=== PATIENT | male | born 1980 | race Caucasian/White ===

== ENCOUNTER 2016-06-13 21:00 | Emergency (ER) | payer SELFPAY ==
[2016-06-13] MEDS ORDERED: ONDANSETRON 4 MG TAB.RAPDIS PO ONE (21:31)
--- NOTE | 2016-06-13 21:32 | ER Document Report ---
ED Medical Screen (RME) - General Chief Complaint: Chest Congestion Stated Complaint: CHEST CONGESTION/COUGHING Time seen by provider: 21:30 Mode of Arrival: Ambulatory Information source: Patient Notes: 35-year-old male complaining of cough and congestion for several days. His hitting him hard he's had some fever and body aches. He did not get a flu shot this year. This pulse is 112, temperature 99.6, pulse ox 98%. His girlfriend has pneumonia. Physical Exam - Vital signs Vitals: Temp Pulse Resp BP Pulse Ox 99.6 F 112 H 18 125/75 98 06/13/16 21:21 06/13/16 21:21 06/13/16 21:21 06/13/16 21:21 06/13/16 21:21 Course - Vital Signs Vital signs: Temp Pulse Resp BP Pulse Ox 99.6 F 112 H 18 125/75 98 06/13/16 21:21 06/13/16 21:21 06/13/16 21:21 06/13/16 21:21 06/13/16 21:21
[2016-06-13] MEDS ORDERED: ACETAMINOPHEN 325 MG TABLET PO ONE (21:33)
[2016-06-14] MEDS ORDERED: AZITHROMYCIN 250 MG TABLET PO ONE (00:09)
[2016-06-14] MEDS ORDERED: DEXAMETHASONE SOD PHOS INJ 10 MG/1 ML VIAL IM ONE (00:12)
--- NOTE | 2016-06-14 00:12 | ER Document Report ---
ED General - General Chief Complaint: Flu Symptoms Stated Complaint: CHEST CONGESTION/COUGHING Mode of Arrival: Ambulatory Notes: Patient is a 35-year-old male presents with complaints of cough congestion and chills. He says his girlfriend had pneumonia. He feels that maybe he has also acquired pneumonia due to his exposure to her. Subjective fever. He does smoke on occasion. No alcohol. No drugs. He takes no medications and is otherwise healthy. He denies any medications for diabetes. He says that his doctor once told him that he could be borderline diabetes and that he just needs to keep his sugars rechecked. Patient says he currently does not require any diabetic medications. No vomiting. No other complaints this time. Symptoms have been ongoing for 4 days. TRAVEL OUTSIDE OF THE [place] IN LAST 30 DAYS: No - Related Data Allergies/Adverse Reactions: No Known Allergies Allergy (Unverified 06/13/16 21:33) Past Medical History - General Information source: Patient - Social History Smoking Status: Current Every Day Smoker Frequency of alcohol use: None Drug Abuse: None Family History: Reviewed & Not Pertinent Patient has suicidal ideation: No Patient has homicidal ideation: No Review of Systems - Review of Systems Notes: My Normal Review Basic REVIEW OF SYSTEMS: CONSTITUTIONAL : Injected fever EENT: Congestion CARDIOVASCULAR: Denies chest pain. RESPIRATORY: Cough GASTROINTESTINAL: Denies abdominal pain. Denies nausea, vomiting, or diarrhea. Denies constipation. Last BM: MUSCULOSKELETAL: Denies neck or back pain or joint pain or swelling. SKIN: Denies rash or skin lesions. NEUROLOGICAL: Denies altered mental status or loss of consciousness. Denies headache. Denies weakness or paralysis or loss of use of either side. Denies problems with gait or speech. Denies sensory or motor loss. ALL OTHER SYSTEMS REVIEWED AND NEGATIVE. Physical Exam - Vital signs Vitals: Temp Pulse Resp BP Pulse Ox 99.6 F 112 H 18 125/75 98 06/13/16 21:21 06/13/16 21:21 06/13/16 21:21 06/13/16 21:21 06/13/16 21:21 - Notes Notes: General Appearance: Well nourished, alert, cooperative, no acute distress, no obvious discomfort. Well-appearing. Vitals: reviewed, See vital signs table. Head: no swelling or tenderness to the head Eyes: PERRL, EOMI, Conjuctiva clear Mouth: No decreasd moisture Neck: Supple, no neck tenderness, No thyromegaly Lungs: No wheezing, No rales, No rhonci, No accessory muscle use, good air exchange bilaterally. Heart: Normal rate, Regular rythm, No murmur, no rub Abdomen: Normal BS, soft, No rigidity, No abdominal tenderness, No guarding, no rebound, no abdominal masses, no organomegaly Extremities: strength 5/5 in all extremities, good pulses in all extremities, no swelling or tenderness in the extremities, no edema. Skin: warm, dry, appropriate color, no rash Neuro: speech clear, oriented x 3, normal affect, responds appropriately to questions. Course - Vital Signs Vital signs: Temp Pulse Resp BP Pulse Ox 99.6 F 112 H 18 125/75 98 06/13/16 21:21 06/13/16 21:21 06/13/16 21:21 06/13/16 21:21 06/13/16 21:21 - Transfer of Care Notes: 06/14/16 00:16 Patient is very well-appearing on exam. His lung pryor are clear. His chest x -ray is read as some possible peribronchial disease. Being that he was recent expose pneumonia think it is appropriate to treat him as possible early pneumonia. I will place on azithromycin. I encourage him to return to ER immediately if has worsening of symptoms or feels unwell. Encourage him follow- up with his doctor in 34 days for reevaluation. Patient agrees with plan will be discharged home. Patient encouraged return to ER immediately if he has difficulty breathing, fevers, or feels unwell. Dictation of this chart was performed using voice recognition software; therefore, there may be some unintended grammatical errors. Discharge - Discharge Clinical Impression: Pneumonia Qualifiers: Pneumonia type: due to unspecified organism Laterality: unspecified laterality Lung location: unspecified part of lung Qualified Code(s): J18.9 - Pneumonia, unspecified organism Condition: Good Disposition: HOME, SELF-CARE Additional Instructions: PNEUMONIA: Your examination indicates that you have pneumonia. This is an infection of the lung tissue, usually caused by bacteria or a virus. Symptoms include cough, fever, shaking chills, chest pain, shortness of breath, and coughing up bloody sputum. Treatment for bacterial pneumonia includes rest, antibiotics for 10 to 14 days, increasing your clear liquid intake, a cool mist humidifier at your bedside, and fever medication. Often, a repeat chest X-ray is performed in a few weeks--even if you feel better--to ascertain whether the infection has completely resolved and no underlying lung problem is present. You should call the physician if you develop persistent vomiting, high fever that does not respond to fever medication, increasing shortness of breath , confusion, or lethargy. Also, failure to improve within two to three days is an indication for re-examination. ANTIBIOTIC THERAPY: You have been given an antibiotic prescription. It's important that you take all the medication, unless instructed otherwise by your physician. Failure to complete the entire course can result in relapse of your condition. Common side effects of antibiotics include nausea, intestinal cramping, or diarrhea. Women may develop vaginal yeast infections, and babies can get yeast (thrush) in the mouth following the use of antibiotics. Contact your physician if you develop significant side effects from this medication. Allergy to this anti AZITHROMYCIN: Azithromycin (Zithromax) is a broad spectrum antibiotic in the same class as erythromycin. It can treat a variety of bacterial infections, but is most frequently used for respiratory infections. Azithromycin is extremely long-lasting. It accumulates in body tissues and continues to kill bacteria for many days. In order to improve absorption, Azithromycin should be taken at least one hour before or two hours after a meal. It does not have the same strong tendency to upset the stomach as erythromycin and is usually very well tolerated. Patients who have had a rash or other true allergic reactions to erythromycin should not take this medication. Call if you develop gastrointestinal distress, severe diarrhea, rash, hives, itching, or shortness of breath. FOLLOW-UP CARE: If you have been referred to a physician for follow-up care, call the physician s office for an appointment as you were instructed or within the next two days. If you experience worsening or a significant change in your symptoms, notify the physician immediately or return to the Emergency Department at any time for re-evaluation. Please return to ER immediately if you have fevers, difficulty breathing, or feel that you are worsening. Prescriptions: Azithromycin 250 mg PO DAILY #4 tablet Forms: Return to Work
[2016-06-14 00:32] VITALS: BP 115/81
== END 2016-06-14 00:32 | disposition home or self-care (01) ==
LOC: ER 21:00
DX: J18.9 Pneumonia, unspecified organism (principal); R68.83 Chills (without fever); F17.200 Nicotine dependence, unspecified, uncomplicated; R05 Cough
CPT/HCPCS: 99283; 96372; 82962; 71020; S0119; J1100

== ENCOUNTER 2016-06-25 20:13 | Emergency (ER) | payer SELFPAY ==
[2016-06-25] MEDS ORDERED: ONDANSETRON 4 MG TAB.RAPDIS PO ONE (21:21)
[2016-06-25] MEDS ORDERED: IBUPROFEN 800 MG TABLET PO ONE (21:21)
--- NOTE | 2016-06-25 21:53 | ER Document Report ---
ED Medical Screen (RME) - General Chief Complaint: Productive Cough Stated Complaint: COUGH Mode of Arrival: Ambulatory Information source: Patient Notes: 35 y/o M presents to ED c/o chills, cough, and generalized weakness. States symptoms began earlier today. Reports completed course of Azithromycin for PNA last week. States had similar symptoms at onset of previous episode of PNA. I have greeted and performed a rapid initial assessment of this patient. A comprehensive ED assessment and evaluation of the patient, analysis of test results and completion of the medical decision making process will be conducted by additional ED providers. TRAVEL OUTSIDE OF THE [place] IN LAST 30 DAYS: No - Related Data Allergies/Adverse Reactions: No Known Allergies Allergy (Unverified 06/13/16 21:33) Past Medical History - Social History Frequency of alcohol use: None Drug Abuse: None Renal/ Medical History: Denies: Hx Peritoneal Dialysis - Immunizations Hx Diphtheria, Pertussis, Tetanus Vaccination: Yes Physical Exam - Vital signs Vitals: Temp Pulse Resp BP Pulse Ox 100.5 F H 111 H 16 117/69 98 06/25/16 20:25 06/25/16 20:25 06/25/16 20:25 06/25/16 20:25 06/25/16 20:25 - General General appearance: Appears well, Alert In distress: None - Respiratory Respiratory status: No respiratory distress Course - Vital Signs Vital signs: Temp Pulse Resp BP Pulse Ox 100.5 F H 111 H 16 117/69 98 06/25/16 20:25 06/25/16 20:25 06/25/16 20:25 06/25/16 20:25 06/25/16 20:25
[2016-06-25] MEDS ORDERED: KETOROLAC TROMETHAMINE 60 MG/2 ML SDV IM ONE (22:35)
[2016-06-25] MEDS ORDERED: PREDNISONE 20 MG TABLET PO ONE (22:37)
[2016-06-25] MEDS ORDERED: ALBUTEROL SULFATE HFA (90 MCG/PUFF) 8 GM MDI (1 MDI/ER DISP) IH ONE (23:00)
--- NOTE | 2016-06-25 23:00 | ER Document Report ---
ED General - General Chief Complaint: Productive Cough Stated Complaint: COUGH Mode of Arrival: Ambulatory Notes: Patient is a 35-year-old male presents with complaint of recurrent cough and recurrence of fever today. Some chills. No vomiting. No diarrhea. Patient seen by me close to a week ago. He was placed on azithromycin because there is possible early pneumonia and chest x-ray. He is also a shot of Decadron. He says he is feeling much better and then today started having chills and has a temp of 100.5. He does continue to smoke. He says that his breathing is fine but he still has some coughing. He has no other complaints at this time. TRAVEL OUTSIDE OF THE [place] IN LAST 30 DAYS: No - Related Data Allergies/Adverse Reactions: No Known Allergies Allergy (Unverified 06/13/16 21:33) Past Medical History - General Information source: Patient - Social History Smoking Status: Current Every Day Smoker Frequency of alcohol use: None Drug Abuse: None Family History: Reviewed & Not Pertinent Patient has suicidal ideation: No Patient has homicidal ideation: No Renal/ Medical History: Denies: Hx Peritoneal Dialysis - Immunizations Hx Diphtheria, Pertussis, Tetanus Vaccination: Yes Review of Systems - Review of Systems Notes: My Normal Review Basic REVIEW OF SYSTEMS: CONSTITUTIONAL : Fever EENT: Denies eye, ear, throat, or mouth pain or symptoms. Denies nasal or sinus congestion. CARDIOVASCULAR: Denies chest pain. RESPIRATORY: Recurrent cough GASTROINTESTINAL: Denies abdominal pain. Denies nausea, vomiting, or diarrhea. Denies constipation. Last BM: MUSCULOSKELETAL: Denies neck or back pain or joint pain or swelling. SKIN: Denies rash or skin lesions. NEUROLOGICAL: Denies altered mental status or loss of consciousness. Denies headache. Denies weakness or paralysis or loss of use of either side. Denies problems with gait or speech. Denies sensory or motor loss. ALL OTHER SYSTEMS REVIEWED AND NEGATIVE. Physical Exam - Vital signs Vitals: Temp Pulse Resp BP Pulse Ox 100.5 F H 111 H 16 117/69 98 06/25/16 20:25 06/25/16 20:25 06/25/16 20:25 06/25/16 20:25 06/25/16 20:25 - Notes Notes: General Appearance: Well nourished, alert, cooperative, no acute distress, no obvious discomfort. Well-appearing. Vitals: reviewed, See vital signs table. Eyes: PERRL, EOMI, Conjuctiva clear Mouth: No decreasd moisture Throat: No tonsillar inflammation, No airway obstruction, No lymphadenopathy Neck: Supple, no neck tenderness Lungs: No wheezing, No rales, No rhonci, No accessory muscle use, good air exchange bilaterally. Heart: Normal rate, Regular rythm, No murmur, no rub Abdomen: Normal BS, soft, No rigidity, No abdominal tenderness, No guarding, no rebound, no abdominal masses, no organomegaly Extremities: strength 5/5 in all extremities, good pulses in all extremities, no swelling or tenderness in the extremities, no edema. Skin: warm, dry, appropriate color, no rash Neuro: speech clear, oriented x 3, normal affect, responds appropriately to questions. Course - Vital Signs Vital signs: Temp Pulse Resp BP Pulse Ox 99 F 102 H 18 118/68 100 06/25/16 23:18 06/25/16 23:18 06/25/16 23:18 06/25/16 23:18 06/25/16 23:18 - Transfer of Care Notes: 06/26/16 07:06 Patient's repeat chest x-ray shows no evidence pneumonia. Will place him on oral prednisone. Encouraged follow closely with her primary care doctor in 2 days he continues have any fevers or any continuing symptoms. Encouraged return to ER immediately if he has recurrent high fevers, difficulty breathing, or feels that he is worsening. Patient agrees with plan will be discharged home. Dictation of this chart was performed using voice recognition software; therefore, there may be some unintended grammatical errors. Discharge - Discharge Clinical Impression: Fever Qualifiers: Fever type: unspecified Qualified Code(s): R50.9 - Fever, unspecified Condition: Good Disposition: HOME, SELF-CARE Additional Instructions: BRONCHITIS: You have acute bronchitis. This disease is an infection or inflammation of the air passageways in your lungs. Symptoms usually include cough, low grade fever, shortness of breath, and wheezing. The cough usually persists for a couple of weeks. Most cases of bronchitis get better without antibiotics. We prescribe antibiotics when we believe bacteria are damaging your airways, or if there's high risk the bronchitis will worsen into pneumonia. Increase your fluid intake. A cool mist humidifier may make your lungs more comfortable. An expectorant (cough medicine that loosens phlegm) can help. If you smoke, STOP!!! Recovery from bronchitis can be somewhat slow, but you should see improvement within a day or two. Repeated episodes of bronchitis may result in lung damage -- for example, chronic bronchitis, recurrent pneumonias, or emphysema. Call the doctor if you develop increasing fever, shortness of breath, chest pain, bloody sputum, or otherwise worsen. If you have not improved at all after several days, contact the physician. INHALED BRONCHODILATORS: You have received a treatment of and/or prescription for an inhaled bronchodilator -- a medication which stimulates the airways in the lung to dilate. This improves the flow of air in asthma, bronchitis, and emphysema. These medicines have some similarity to adrenaline, and can cause similar side effects: shakiness, racing heart, and a sense of nervousness. These side effects decrease with time. Contact your doctor if these side effects are severe. Do not over-use the medicine. Too-frequent use of the inhaler may make it ineffective. Call your doctor if the inhaler is not controlling your symptoms at the prescribed doses. STEROID MEDICATION: You have been given an injection of or oral medicine of the cortisone/ steroid class. This medication is used to control inflammation or allergy. Seb t is usually only given for a short period of time, until the acute process subsides. There are usually no side effects from short-term use of cortisone-like medications. Some persons feel an increased sense of well-being and are not sleepy at bedtime. Long-term use of cortisone medications is best avoided, unless required for a severe condition. If your condition does not remit, or relapses after the course of corticosteroid medication, you should consult your physician. SMOKING: If you smoke, you should stop smoking. The tar and chemicals in cigarette smoke are harmful. Smoking has been shown to cause: emphysema chronic bronchitis lung cancer mouth and throat cancer stomach and pancreas cancer premature aging defects In addition, smoking increases ear and lung infections in children of smokers. FOLLOW-UP CARE: If you have been referred to a physician for follow-up care, call the physician s office for an appointment as you were instructed or within the next two days. If you experience worsening or a significant change in your symptoms, notify the physician immediately or return to the Emergency Department at any time for re-evaluation. PLease use the inhaler as 2 puffs every 4 hours for cough. Please return to [facility] ER if you have difficulty breathing or feelthat your symptoms are worsening. You can use the note to return to work only if you remain fever free over the next 24hours. If you have recurrent fevers you must wait to be fever free for 24 hours. Prescriptions: Prednisone [Deltasone 20 mg Tablet] 3 tab PO DAILY 5 Days Forms: Return to Work
[2016-06-25 23:19] VITALS: BP 118/68
== END 2016-06-25 23:18 | disposition home or self-care (01) ==
LOC: ER 20:13
DX: R50.9 Fever, unspecified (principal); R05 Cough; F17.200 Nicotine dependence, unspecified, uncomplicated
CPT/HCPCS: 99283; 96372; 87804; 71020; J1885; S0119; J7512; J3490

== ENCOUNTER 2017-07-14 00:18 | Emergency (ER) | payer SELFPAY ==
[2017-07-14] MEDS ORDERED: BENZONATATE 100 MG CAPSULE PO ONE (01:16)
--- NOTE | 2017-07-14 01:19 | ER Document Report ---
HPI - HPI Pain Level: 2 Notes: Patient is a 36-year-old male with no significant past medical history who presents to the ED complaining of nasal congestion/discharge, dry nonproductive cough, decreased hearing to the right ear, and right ear pain. Patient states that the right cheek/anterior ear has not has occasional tingling. Patient states that he is eating and drinking without any difficulties. He is urinating normally and having normal bowel movements. Patient has been using some [id number] meds with minimal relief. Patient does admit to smoking but denies IV drug use. Patient states that over the last couple days he has lost hearing into his right ear. He has not noticed any discharge from the ear. He denies any drug allergies. No other concerns or complaints at this time. Denies any headache, fever, head injury, neck pain, sore throat, chest pain, palpitations, syncope, shortness of breath, wheeze, dyspnea, abdominal pain, nausea/vomiting/diarrhea, urinary retention, dysuria, hematuria, or rash. - ROS Systems Reviewed and Negative: Yes All other systems reviewed and negative Past Medical History - Social History Smoking Status: Current Every Day Smoker Family History: Reviewed & Not Pertinent Renal/ Medical History: Denies: Hx Peritoneal Dialysis - Immunizations Hx Diphtheria, Pertussis, Tetanus Vaccination: Yes Vertical Provider Document - CONSTITUTIONAL Agree With Documented VS: Yes Notes: PHYSICAL EXAMINATION: GENERAL: Well-appearing, well-nourished and in no acute distress. A&Ox4. Answers questions appropriately. Moves comfortably w/o notable distress HEAD: Atraumatic, normocephalic. EYES: Pupils equal round and reactive to light, extraocular movements intact, sclera anicteric, conjunctiva are normal. ENT: EAC clear b/l. Rt TM bulging, erythema, fluid. Lt TM intact b/l without erythema, fluid, or perforation. Nares patent, mild inflammation, and with clear/yellow discharge. oropharynx no erythema without exudates. No tonsilar hypertrophy without erythema or exudate. No palatine shift. Uvula midline. No tongue protrusion. No drooling, hoarseness, or airway compromise. Moist mucous membranes. No sinus tenderness. NECK: Normal range of motion, supple without lymphadenopathy. No rigidity/ meningismus. LUNGS: Breath sounds clear to auscultation bilaterally and equal. No wheezes rales or rhonchi. No retractions HEART: Regular rate and rhythm without murmurs, rubs, gallops. ABDOMEN: Soft, nontender, nondistended abdomen. No guarding, no rebound. No masses appreciated. Normal bowel sounds present. No CVA tenderness bilaterally. NEUROLOGICAL: Normal speech, normal gait. Normal sensory, motor exams PSYCH: Normal mood, normal affect. SKIN: Warm, Dry, normal turgor, no rashes or lesions noted. - INFECTION CONTROL TRAVEL OUTSIDE OF THE [place] IN LAST 30 DAYS: No Course - Re-evaluation Re-evalutation: 07/14/17 01:23 Patient is an afebrile, well-hydrated, 36-year-old male who presents to the ED with acute URI and acute right otitis media. Vitals are stable. PE is otherwise unremarkable. I suspect that overall his this is viral for the secondarily infected ear. No labs or imaging warranted at this time based on H& P. Patient is not tachycardic, not hypoxic, and not tachypneic. Patient's lungs are clear to auscultation bilaterally. He has no significant cardiopulmonary medical history. Low suspicion for any meningitis, sepsis, peritonsillar/pharyngeal abscess, respiratory compromise, or other emergent systemic condition at this time. Patient is aware this condition can change from initial presentation and he needs to monitor symptoms closely. I will send him home with a prescription for amoxicillin for his otitis media as well as Tessalon to help with the cough. Patient to start taking Mucinex with Sudafed. Conservative measures otherwise for symptoms. Recheck with your PCM in 3-5 days. Return to the ED with any worsening/concerning symptoms otherwise as reviewed in discharge. Patient is in agreement. Discharge - Discharge Clinical Impression: Acute URI Otitis media, right Qualifiers: Otitis media type: unspecified Qualified Code(s): H66.91 - Otitis media, unspecified, right ear Condition: Stable Disposition: HOME, SELF-CARE Instructions: Amoxicillin ([facility]), Otitis Media ([facility]), Upper Respiratory Illness ([facility]) Additional Instructions: Maintain adequate fluid intake Take meds as directed tylenol/ibuprofen as needed over the counter cold medication as needed for symptoms Humidified air may help Wash your hands regularly Wear a mask when coughing F/u: with your PCM in 3-5 days for a recheck Return to the ED with any fever, worsening pain, chest pain, palpitations, syncope, worsening [place], neck pain/stiffness, shortness of breath, wheezing, drooling, trouble swallowing/breathing, abdominal pain, n/v/d, rash, or worsening/concerning symptoms otherwise. Prescriptions: Benzonatate [Tessalon Perle 100 mg Capsule] 100 mg PO Q8HP PRN #15 cap PRN Reason: Amoxicillin Trihydrate [Amoxil 875 mg Tablet] 1 tab PO BID #20 tablet Forms: Elevated Blood Pressure, Smoking Cessation Education Referrals: [facility] [Provider Group] - Follow up as needed [facility] [Provider Group] - Follow up as needed [facility] [Provider Group] - Follow up as needed
[2017-07-14 01:54] VITALS: BP 126/80
== END 2017-07-14 01:54 | disposition home or self-care (01) ==
LOC: ER 00:18
DX: J06.9 Acute upper respiratory infection, unspecified (principal); H66.91 Otitis media, unspecified, right ear; R09.81 Nasal congestion; R09.89 Other specified symptoms and signs involving the circulatory and respiratory systems; H91.91 Unspecified hearing loss, right ear; H92.01 Otalgia, right ear; R20.0 Anesthesia of skin; F17.200 Nicotine dependence, unspecified, uncomplicated
CPT/HCPCS: 99283

== ENCOUNTER 2017-07-27 00:51 | Emergency (ER) | payer SELFPAY ==
[2017-07-27 01:00] VITALS: BP 111/73
--- NOTE | 2017-07-27 01:20 | ER Document Report ---
HPI - HPI Patient complains to provider of: fluid still in right ear, can't hear Onset: Other - 2 weeks Quality of pain: No pain Pain Level: Denies Context: 36-year-old male still has hearing loss the thinks he still has fluid in the right ear. He wants to know how he can get rid of it. He was treated for OM on July 14 with amoxicillin. Associated Symptoms: None Exacerbated by: Denies Relieved by: Denies Similar symptoms previously: Yes Recently seen / treated by doctor: Yes - ROS ROS below otherwise negative: Yes Systems Reviewed and Negative: Yes All other systems reviewed and negative Past Medical History - General Information source: Patient - Social History Smoking Status: Unknown if Ever Smoked Frequency of alcohol use: None Drug Abuse: None Lives with: Family Family History: Reviewed & Not Pertinent - Medical History Medical History: Negative Renal/ Medical History: Denies: Hx Peritoneal Dialysis Surgical Hx: Negative - Immunizations Hx Diphtheria, Pertussis, Tetanus Vaccination: Yes Vertical Provider Document - CONSTITUTIONAL Agree With Documented VS: Yes Exam Limitations: No Limitations - INFECTION CONTROL TRAVEL OUTSIDE OF THE [place] IN LAST 30 DAYS: No - HEENT HEENT: negative: Tympanic Membrane Red, Tympanic Membrane Bulging Notes: yellow serous OM right, left normal - NECK Neck: Supple - RESPIRATORY O2 Sat by Pulse Oximetry: 98 - NEURO Level of Consciousness: Awake, Alert, Appropriate Course - Vital Signs Vital signs: Temp Pulse Resp BP Pulse Ox 98.5 F 83 18 111/73 98 07/27/17 00:57 07/27/17 00:57 07/27/17 00:57 07/27/17 00:57 07/27/17 00:57 Discharge - Discharge Clinical Impression: Right serous otitis media Qualifiers: Chronicity: acute Recurrence: not specified as recurrent Qualified Code(s): H65.01 - Acute serous otitis media, right ear Condition: Good Disposition: HOME, SELF-CARE Instructions: ENT, Serous Otitis Media ([facility]) Additional Instructions: call and schedule appointment with ENT doctor\ [facility] - [address] [address] Toll Free: [facility] - [address] [address] [facility] [address] [place] [address]
== END 2017-07-27 01:53 | disposition home or self-care (01) ==
LOC: ER 00:51
DX: H65.01 Acute serous otitis media, right ear (principal); H92.01 Otalgia, right ear; H91.91 Unspecified hearing loss, right ear
CPT/HCPCS: 99282

== ENCOUNTER 2017-08-18 23:35 | Emergency (ER) | payer SELFPAY ==
[2017-08-19 00:11] VITALS: BP 113/74
== END 2017-08-19 00:05 | disposition left against medical advice (07) ==
LOC: ER 23:35
DX: Z53.21 Procedure and treatment not carried out due to patient leaving prior to being seen by health care provider (principal)